=== PATIENT | female | born 1965 | race Hispanic/Latino ===

== ENCOUNTER 2021-02-12 08:04 | Emergency (ER) | payer BC ==
[~2021-02-12] VITALS: Ht 162.6 cm; Wt 63.5 kg
[2021-02-12 08:39] LABS: BASOPHILS % 0.3 % (0.0-1.0); EOSINOPHILS # (AUTO) 0.2 (0.0-0.4); EOSINOPHILS % 2.1 % (0.0-6.0); HEMOGLOBIN 13.9 g/dL (12.0-16.0); LYMPHOCYTES # (AUTO) 2.5 (1.0-3.2); LYMPHOCYTES % 32.9 % (18.0-39.1); MEAN CORPUSCULAR HEMOGLOBIN 30.3 pg (28-32); MEAN CORPUSCULAR HGB CONC 33.1 g/dL (31-35); MEAN CORPUSCULAR VOLUME 91.7 fL (81-99); MONOCYTES # (AUTO) 0.5 (0.2-0.8); MONOCYTES % 5.9 % (4.4-11.3); NEUTROPHILS # (AUTO) 4.5 (2.1-6.9); NEUTROPHILS % 58.5 % (38.7-80.0); PLATELET COUNT 227 x10e3/uL (140-360); RED BLOOD COUNT 4.58 x10e6/uL (3.6-5.1); RED CELL DISTRIBUTION WIDTH 12.2 % (11.7-14.4)
[2021-02-12 08:58] LABS: ALANINE AMINOTRANSFERASE 29 IU/L (0-55); ALBUMIN 4.3 g/dL (3.5-5.0); ALBUMIN/GLOBULIN RATIO 1.3 (0.8-2.0); ALKALINE PHOSPHATASE 104 IU/L (40-150); ANION GAP 14.8 mmol/L (8-16); BLOOD UREA NITROGEN 16 mg/dL (7-26); BUN/CREATININE RATIO 20 (6-25); CALCIUM 9.4 mg/dL (8.4-10.2); CARBON DIOXIDE 26 mmol/L (22-29); CHLORIDE 105 mmol/L (98-107); EST GLOMERULAR FILTRATION RATE > 60 ML/MIN (60-); GLUCOSE 93 mg/dL (74-118); POTASSIUM 3.8 mmol/L (3.5-5.1); SODIUM 142 mmol/L (136-145)
[2021-02-12] MEDS ORDERED: SODIUM CHLORIDE 0.9% 50ML 50 ML ONE (09:16)
[2021-02-12] MEDS ORDERED: IOPAMIDOL 370 MG/ML 200 ML INFUS..BTL INJ ONE (09:17)
[2021-02-12] MEDS ORDERED: DEXAMETHASONE SOD PHOS 10 MG/1 ML VIAL IV ONE (10:30)
[2021-02-12 10:40] VITALS: BP 114/73
== END 2021-02-12 10:44 | disposition home or self-care (01) ==
LOC: ER 08:09
DX: R13.10 Dysphagia, unspecified (principal); J02.9 Acute pharyngitis, unspecified; K21.9 Gastro-esophageal reflux disease without esophagitis; E03.9 Hypothyroidism, unspecified
CPT/HCPCS: 36415; 70491; 80053; 85025; 99283; J1100; Q9967

== ENCOUNTER → 2025-05-02 | Outpatient (REF) | payer OTHER | LOC: DX 09:54 | PROVIDERS: ATTEND Internal Medicine Endocrinology, Diabetes & Metabolism | DX: R13.10 Dysphagia, unspecified (principal); G71.00 Muscular dystrophy, unspecified | CPT/HCPCS: 74230 ==

== ENCOUNTER → 2025-06-05 | Outpatient (RCR) | payer OTHER | LOC: ST 05-28 09:36 | PROVIDERS: ATTEND Internal Medicine Endocrinology, Diabetes & Metabolism | DX: R13.13 Dysphagia, pharyngeal phase (principal) ==

== ENCOUNTER 2025-06-30 10:00 | Outpatient (RCR) | payer OTHER | END 2025-07-06 | LOC: ST 10:00 | PROVIDERS: ATTEND Internal Medicine Endocrinology, Diabetes & Metabolism | DX: R13.13 Dysphagia, pharyngeal phase (principal) ==

== ENCOUNTER 2025-07-16 18:23 | Outpatient (RCR) | payer OTHER | END 2025-08-05 | LOC: ST 18:23 | PROVIDERS: ATTEND Internal Medicine Endocrinology, Diabetes & Metabolism | DX: R13.13 Dysphagia, pharyngeal phase (principal) ==

== ENCOUNTER → 2025-07-21 | Outpatient (REF) | payer OTHER | LOC: DX 09:42 | PROVIDERS: ATTEND Family Medicine | DX: R13.10 Dysphagia, unspecified (principal); G71.09 Other specified muscular dystrophies; E03.9 Hypothyroidism, unspecified | CPT/HCPCS: 74230 ==